=== PATIENT | male | born 2000 | race Two or more races ===

== ENCOUNTER 2021-01-02 18:12 | Inpatient (IN) | payer SELFPAY ==
[~2021-01-02] VITALS: Ht 185.4 cm; Wt 71.8 kg
[2021-01-02 22:16] LABS: Basophils # (auto) 0 10 ^3/uL (0-0.2); Basophils % (auto) 0.2 % (0.0-2.0); Eosinophils # (auto) 0 10 ^3/uL (0-0.8); Eosinophils % (auto) 0.2 % (0.0-7.0); Hematocrit 44.8 % (41.0-53.0); Hemoglobin 15.4 g/dL (13.5-17.5); Lymphocytes # (auto) 1.6 10 ^3/uL (0.4-5.4); Lymphocytes % (auto) 17.8 % (10.0-50.0); Mean Corpuscular Hemoglobin 31.2 pg (28.0-32.0); Mean Corpuscular Hgb Conc. 34.3 g/dL (32.0-36.0); Mean Corpuscular Volume 90.9 fL (80.0-100.0); Monocytes # (auto) 0.4 10 ^3/uL (0-1.3); Monocytes % (auto) 4.8 % (0.0-12.0); Red Blood Cells 4.93 10^6/uL (4.5-5.90); Red Cell Distribution Width 13.1 % (11.8-14.3)
[2021-01-02 22:29] LABS: INR 1.05 (0.9-1.15)
[2021-01-02 22:37] LABS: Albumin 4.1 g/dL (3.4-5.0); Anion Gap 6 (5-15); Calcium 8.7 mg/dL (8.5-10.1); Carbon Dioxide 25 mmol/L (21-32); Chloride 109 mmol/L (98-107); Glucose 87 mg/dL (74-106); Lipase 106 U/L (73-393); Sodium 140 mmol/L (136-145)
[2021-01-02 22:45] LABS: Alanine Aminotransferase 25 U/L (16-61); Alkaline Phosphatase 116 U/L (45-117); Aspartate Aminotransferase 14 U/L (15-37); BUN/Creatinine Ratio 18.7; Blood Urea Nitrogen 14 mg/dL (7-18); GFR African American 171 mL/min; GFR Non-African American 141 mL/min
[2021-01-02 22:47] LABS: Bilirubin, Total 0.6 mg/dL (0.2-1.0)
[2021-01-02] MEDS ORDERED: IOHEXOL 300 MG/ML 100ML BOTTLE IJ ONE (23:07)
[2021-01-03 02:12] LABS: INR 1.07 (0.9-1.15)
[2021-01-03] MEDS ORDERED: CIPROFLOXACIN 400MG/200ML 200 ML IV ONE (02:15)
[2021-01-03] MEDS ORDERED: metroNIDAZOLE 500MG/100ML 100 ML IV ONE (02:15)
[2021-01-03] MEDS ORDERED: ACETAMINOPHEN 325 MG TAB PO PRN (03:30)
[2021-01-03] MEDS ORDERED: HYDROcodone-ACET 5/325MG TAB PO PRN (03:30)
[2021-01-03] MEDS ORDERED: MORPHINE SULFATE 4 MG/ML SYR/VIAL IV PRN (03:30)
[2021-01-03] MEDS ORDERED: ONDANSETRON HCL 4 MG/2 ML VIAL IV PRN (03:30)
[2021-01-03] MEDS ORDERED: MORPHINE SULF INJ 2 MG/ML SYRINGE 1ML IV PRN (03:30)
[2021-01-03] MEDS ORDERED: NITROGLYCERIN 0.4 MG SL TAB SL PRN (03:30)
[2021-01-03] MEDS: metroNIDAZOLE 500MG/100ML 100 ML IV SCH ×3 (06:00→21:57)
[2021-01-03 08:28] LABS: Urine WBC None Seen /hpf (0 - 3)
[2021-01-03 08:56] LABS: Basophils # (auto) 0 10 ^3/uL (0-0.2); Basophils % (auto) 0.4 % (0.0-2.0); Eosinophils # (auto) 0 10 ^3/uL (0-0.8); Eosinophils % (auto) 0.7 % (0.0-7.0); Hematocrit 43.7 % (41.0-53.0); Hemoglobin 15.2 g/dL (13.5-17.5); Lymphocytes # (auto) 1.5 10 ^3/uL (0.4-5.4); Lymphocytes % (auto) 23.3 % (10.0-50.0); Mean Corpuscular Hemoglobin 31.5 pg (28.0-32.0); Mean Corpuscular Hgb Conc. 34.8 g/dL (32.0-36.0); Mean Corpuscular Volume 90.3 fL (80.0-100.0); Monocytes # (auto) 0.4 10 ^3/uL (0-1.3); Monocytes % (auto) 6.4 % (0.0-12.0); Neutrophils # (auto) 4.6 10 ^3/uL (1.6-8.6); Neutrophils % (auto) 69.2 % (37.0-80.0); Red Blood Cells 4.84 10^6/uL (4.5-5.90); Red Cell Distribution Width 12.9 % (11.8-14.3); White Blood Cell 6.6 10^3/uL (4.4-10.8)
[2021-01-03 09:00] VITALS: BP 110/61
[2021-01-03 09:07] LABS: Urine Bacteria NONE SEEN /hpf (None Seen); Urine Blood Negative /uL (Negative); Urine Mucus MODERATE (None Seen)
[2021-01-03 09:13] LABS: Albumin 4.2 g/dL (3.4-5.0); BUN/Creatinine Ratio 17.6; Calcium 8.7 mg/dL (8.5-10.1); Potassium 3.6 mmol/L (3.5-5.1)
[2021-01-03 09:16] LABS: Bilirubin, Total 0.8 mg/dL (0.2-1.0); Total Protein 6.9 g/dL (6.4-8.2)
[2021-01-03 09:19] LABS: Urine Specific Gravity 1.051 (1.001-1.035)
[2021-01-03] MEDS: FAMOTIDINE (10MG/ML) 2ML VL IV SCH ×2 (10:20→21:57)
[2021-01-03] MEDS: cefTRIAXone 1GM/50ML D5W 50 ML IV SCH (10:22)
[2021-01-03 12:00] VITALS: BP 110/61
[2021-01-03] MEDS: D5W/SOD CHL 0.45% 1,000 ML IV SCH ×2 (12:00→20:15)
[2021-01-03 13:00] VITALS: BP 112/68
[2021-01-03 17:00] VITALS: BP 108/65
[2021-01-03] MEDS ORDERED: LACTULOSE 20Gm/30ML SOLN PO ONE (19:30)
[2021-01-03] MEDS: LACTULOSE 20Gm/30ML SOLN PO SCH (21:57)
[2021-01-03 22:00] VITALS: BP 98/54
[2021-01-04 05:00] VITALS: BP_SYST 92; BP_SYST 98; BP_DIAS 55; BP_DIAS 62
[2021-01-04] MEDS: metroNIDAZOLE 500MG/100ML 100 ML IV SCH ×3 (05:55→21:40)
[2021-01-04 06:03] LABS: Basophils # (auto) 0 10 ^3/uL (0-0.2); Basophils % (auto) 0.7 % (0.0-2.0); Eosinophils # (auto) 0.1 10 ^3/uL (0-0.8); Eosinophils % (auto) 1.3 % (0.0-7.0); Hemoglobin 14.8 g/dL (13.5-17.5); Lymphocytes # (auto) 1.6 10 ^3/uL (0.4-5.4); Lymphocytes % (auto) 35.5 % (10.0-50.0); Mean Corpuscular Hemoglobin 31.7 pg (28.0-32.0); Mean Corpuscular Hgb Conc. 35.3 g/dL (32.0-36.0); Mean Corpuscular Volume 89.7 fL (80.0-100.0); Monocytes # (auto) 0.4 10 ^3/uL (0-1.3); Monocytes % (auto) 9.8 % (0.0-12.0); Neutrophils # (auto) 2.4 10 ^3/uL (1.6-8.6); Neutrophils % (auto) 52.7 % (37.0-80.0); Nucleated Red Blood Cells % 0.1 %; Red Blood Cells 4.68 10^6/uL (4.5-5.90); Red Cell Distribution Width 12.8 % (11.8-14.3); White Blood Cell 4.5 10^3/uL (4.4-10.8)
[2021-01-04 06:18] LABS: Albumin 3.5 g/dL (3.4-5.0); BUN/Creatinine Ratio 14.3; Calcium 8.3 mg/dL (8.5-10.1); Potassium 3.7 mmol/L (3.5-5.1)
[2021-01-04 06:20] LABS: Bilirubin, Total 0.8 mg/dL (0.2-1.0)
[2021-01-04] MEDS: D5W/SOD CHL 0.45% 1,000 ML IV SCH ×2 (06:53→18:25)
[2021-01-04 09:00] VITALS: BP 107/53
[2021-01-04] MEDS: LACTULOSE 20Gm/30ML SOLN PO SCH ×2 (09:46→21:40)
[2021-01-04] MEDS: FAMOTIDINE (10MG/ML) 2ML VL IV SCH ×2 (09:46→21:40)
[2021-01-04] MEDS: cefTRIAXone 1GM/50ML D5W 50 ML IV SCH (09:46)
[2021-01-04 13:00] VITALS: BP 102/54
[2021-01-04 17:00] VITALS: BP 102/56
[2021-01-04 22:00] VITALS: BP 105/59
[2021-01-05 05:00] VITALS: BP 101/71
[2021-01-05] MEDS: metroNIDAZOLE 500MG/100ML 100 ML IV SCH ×2 (05:55→12:56)
[2021-01-05] MEDS ORDERED: IOHEXOL 300 MG/ML 100ML BOTTLE IJ ONE (08:23)
[2021-01-05 09:00] VITALS: BP 146/80
[2021-01-05] MEDS: FAMOTIDINE (10MG/ML) 2ML VL IV SCH (09:10)
[2021-01-05] MEDS: LACTULOSE 20Gm/30ML SOLN PO SCH ×2 (09:10→09:12)
[2021-01-05] MEDS: cefTRIAXone 1GM/50ML D5W 50 ML IV SCH (09:11)
[2021-01-05] MEDS: D5W/SOD CHL 0.45% 1,000 ML IV SCH (12:57)
[2021-01-05 13:00] VITALS: BP 107/65
[2021-01-05 17:00] VITALS: BP 94/58
== END 2021-01-05 16:50 | disposition home or self-care (01) | DRG 563 ==
LOC: ER 18:12 → OVERFLOW 01-03 03:20 → WEST WING 01-03 09:20
PROVIDERS: ADMIT Nurse Practitioner Family; ATTEND Family Medicine
DX: S39.011A Strain of muscle, fascia and tendon of abdomen, initial encounter (principal); X58.XXXA Exposure to other specified factors, initial encounter; K56.41 Fecal impaction; Z20.822 Contact with and (suspected) exposure to COVID-19; Y93.89 Activity, other specified; Y92.89 Other specified places as the place of occurrence of the external cause; Y99.8 Other external cause status
CPT/HCPCS: 36415; 74177; 76705; 80053; 81001; 83605; 83690; 84484; 85025; 85610; 87040; 87426; 96365; 96367; 96375; G0378; J0696; J2405; J3490